=== PATIENT | male | born 2000 | race Caucasian/White ===

== ENCOUNTER 2018-11-10 09:30 | Emergency (ER) | payer OTHER ==
[2018-11-10] MEDS ORDERED: Lidocaine 1% 20 ML MDV ONE (10:08)
[2018-11-10] MEDS ORDERED: Bacitracin/Neomycin/Polymyxin B Oint 0.9 GM U/D Packet ONE (10:25)
[2018-11-10] MEDS ORDERED: Lidocaine 1% 20 ML MDV INJECT ONE (10:26)
[2018-11-10] MEDS ORDERED: Bacitracin/Neomycin/Polymyxin B Oint 0.9 GM U/D Packet TOP ONE (10:27)
--- NOTE | 2018-11-10 11:02 | EDM.PDOC ---
ED HPI GENERAL MEDICAL PROBLEM - General Chief Complaint: Laceration Stated Complaint: laceration Time Seen by Provider: 11/10/18 10:04 Source of Information: Reports: Patient History Limitations: Reports: No Limitations - History of Present Illness INITIAL COMMENTS - FREE TEXT/NARRATIVE: Patient presents with finger injury after pounding stakes in the ground to make forms for concrete. His finger got between the stake and the handle of the hammer. He can move it in partial ROM with some pain. No numbness. He is sure his immunizations are all up to date from school. I advised checking with his clinic tomorrow morning to be sure. Right Finger-Index Pain Score (Numeric/FACES): 7 - Related Data Allergies Allergy/AdvReac Type Severity Reaction Status Date / Time No Known Drug Allergies Allergy Other Verified 11/10/18 09:44 Home Meds: Home Meds . [No Known Home Meds] 11/10/18 [History] Past Medical History - Past Health History Medical/Surgical History: Denies Medical/Surgical History Social & Family History - Family History Family Medical History: Noncontributory - Tobacco Use Smoking Status *Q: Never Smoker - Recreational Drug Use Recreational Drug Use: No ED ROS GENERAL - Review of Systems Review Of Systems: See Below Constitutional: Denies: Fever, Chills, Malaise, Weakness HEENT: Reports: No Symptoms Respiratory: Denies: Shortness of Breath, Cough Cardiovascular: Denies: Chest Pain, Lightheadedness, Syncope Endocrine: Reports: No Symptoms GI/Abdominal: Denies: Abdominal Pain, Nausea, Vomiting : Reports: No Symptoms Musculoskeletal: Reports: Hand Pain (see HPI). Denies: Neck Pain, Shoulder Pain , Arm Pain, Back Pain, Leg Pain Skin: Denies: Cyanosis, Jaundice, Mottled, Pallor, Diaphoresis Neurological: Denies: Confusion, Dizziness, Headache, Seizure, Syncope, Trouble Speaking, Difficulty Walking Psychiatric: Denies: Agitation, Anxiety, Confusion ED EXAM, SKIN/RASH Exam: See Below (There is a 1.5 cm irregular flap laceration at the lateral volar PIP joint of right index finger with a 0.5 cm linear laceration at medial volar surface of same joint. AROM/PROM is reduced due to swelling and pain but no evidence of mechanical limitation or crepitus. No deformity. Distal CMS intact.) Exam Limited By: No Limitations General Appearance: Alert, WD/WN, No Apparent Distress Eye Exam: Bilateral Eye: EOMI, Normal Inspection, PERRL Ears: Normal External Exam, Hearing Grossly Normal Nose: Normal Inspection, No Blood Throat/Mouth: Normal Inspection, Normal Lips, Normal Voice, No Airway Compromise Head: Atraumatic, Normocephalic Neck: Normal Inspection, Full Range of Motion Respiratory/Chest: No Respiratory Distress, Lungs Clear, Normal Breath Sounds Cardiovascular: Regular Rate, Rhythm, No Murmur GI/Abdominal: No Distention Back Exam: Full Range of Motion Extremities: Normal Inspection (except CC), Normal Range of Motion (except CC), Normal Capillary Refill, Other Neurological: Alert, Oriented, Normal Cognition, No Motor/Sensory Deficits Psychiatric: Normal Affect, Normal Mood Skin: Warm, Dry, Intact (except CC), Normal Color, No Rash ED SKIN PROCEDURES - Laceration/Wound Repair Right Anterior Sides of Proximal Digit - 2nd (Index) Lac/Wound length In cm: 1.5 Appearance: Subcutaneous, Irregular Distal NVT: Neuro & Vascular Intact, No Tendon Injury Anesthetic Type: Local Local Anesthesia - Lidocaine (Xylocaine): 1% Plain Local Anesthetic Volume: 4cc Skin Prep: Chlorhexidine (Hibiciens) (20 minutes soak), Saline, Sterile Drape Saline Irrigation (cc's): 70 Exploration/Debridement/Repair: Wound Explored, In a Bloodless Field Suture Size: 5-0 # of Sutures: 5 Suture Type: Nylon, Interrupted, Simple, Mattress (a single mattress suture was used on the smaller laceration to achieve better closure) Drain Placement: No Sterile Dressing Applied: Provider Tetanus Status Addressed: Yes Complications: No Course - Vital Signs Last Recorded V/S: Last Vital Signs Temp 97.6 F 11/10/18 09:36 Pulse 55 L 11/10/18 09:36 Resp 14 11/10/18 09:36 BP 144/81 H 11/10/18 09:36 Pulse Ox 97 11/10/18 09:36 - Orders/Labs/Meds Orders: Active Orders 24 hr Category Date Time Status Fingers Second Digit Rt F6 [CR] Stat Exams 11/10/18 10:55 Ordered Meds: Medications Discontinued Medications Generic Name Dose Route Start Last Admin Trade Name Freq PRN Reason Stop Dose Admin Lidocaine HCl Confirm 11/10/18 10:08 11/10/18 10:27 Xylocaine 1% Administered 11/10/18 10:09 Not Given Dose 20 ml .ROUTE .STK-MED ONE Lidocaine HCl 20 ml 11/10/18 10:26 11/10/18 10:28 Xylocaine 1% INJECT 11/10/18 10:27 3.5 ml ONETIME ONE Administration Neomycin/Polymyxin/Bacitracin 1 each 11/10/18 10:27 11/10/18 10:53 Triple Antibiotic Oint TOP 11/10/18 10:28 1 each ONETIME ONE Administration Neomycin/Polymyxin/Bacitracin Confirm 11/10/18 10:25 11/10/18 10:29 Triple Antibiotic Oint Administered 11/10/18 10:26 Not Given Dose 1 each .ROUTE .STK-MED ONE - Re-Assessments/Exams Free Text/Narrative Re-Assessment/Exam: 11/10/18 11:32 Xrays show no evidence of fracture or bony pathology. Discussed findings and treatment plan with patient and sterile technique was used throughout procedure. Patient tolerated it well and after placing tube gauze over sterile dressings was discharged to home in stable condition. Departure - Departure Time of Disposition: 11:19 Disposition: Home, Self-Care 01 Condition: Good Clinical Impression: Finger laceration Qualifiers: Encounter type: initial encounter Finger: index finger Damage to nail status: without damage Foreign body presence: without foreign body Laterality: right Qualified Code(s): S61.210A - Laceration without foreign body of right index finger without damage to nail, initial encounter - Discharge Information Instructions: Laceration Care, Adult Referrals: Haylie Tiwari MD [Primary Care Provider] - Additional Instructions: 1. Keep wound clean and dry except for showering as discussed. 2. Remove the bandages in two days then after cleaning redress with sterile bandages. 3. Take the antibiotics as directed. 4. If any sign of infection or other problems recheck with your PCP [facility]. 5. Stitches should be removed by your PCP in about 10 days. - My Orders Last 24 Hours: My Active Orders 11/10/18 10:55 Fingers Second Digit Rt F6 [CR] Stat - Assessment/Plan Last 24 Hours: My Active Orders 11/10/18 10:55 Fingers Second Digit Rt F6 [CR] Stat
[2018-11-10] MEDS ORDERED: Cephalexin 250 MG Cap PO ONE ×2 (11:21)
[2018-11-10] MEDS: Cephalexin 250 MG Cap PO ONE (11:24)
--- NOTE | 2018-11-10 11:56 | CR ---
[id number] RAD/RAD Fingers Right Exam: RAD Fingers Right Indication:INJURY Comparison: No prior imaging for comparison. Discussion: Soft tissue ulceration. No retained radiopaque foreign bodies. No fracture or dislocation. Impression: As above. Garth Slater MD 11/10/18 1154 Thank you for allowing us to participate in the care of your patient.
[2018-11-11] MEDS: Cephalexin 250 MG Cap PO ONE (11:14)
== END 2018-11-10 11:35 | disposition home or self-care (01) ==
LOC: KA.ED 09:30
DX: S61.210A Laceration without foreign body of right index finger without damage to nail, initial encounter (principal); W23.1XXA Caught, crushed, jammed, or pinched between stationary objects, initial encounter
CPT/HCPCS: 12001; 73140; 99283; A9270; J2001